=== PATIENT | male | born 1960 | race Caucasian/White ===

== ENCOUNTER 2022-09-23 19:42 | Inpatient (IN) ==
[2022-09-23] MEDS ORDERED: Albuterol/Ipratropium NEB.SOL (2.5/0.5 MG) 3 ML NEB.SOLN INH ONE (19:57)
[2022-09-23 20:16] LABS: Venous Bicarbonate HCO3 30.8 mmol/L (24-28)
[2022-09-23 20:18] LABS: ABS Basophils 0.1 10^3/ul (0-0.2); ABS Eosinophils 0.2 10^3/ul (0-0.6); ABS Lymphocytes 0.7 10^3/ul (1.0-4.8); ABS Neutrophils 8.2 10^3/ul (1.5-7.7); Eosinophil % 2.4 %; Hematocrit 48 % (42-52); Hemoglobin 15.9 g/dL (14.0-18.0); Lymphocyte % 6.5 %; Mean Corpuscular HGB Conc 33 g/dL (31-36); Mean Corpuscular Hemoglobin 30 pg (27-31); Mean Corpuscular Volume 91 fL (80-94); Mean Platelet Volume 7.3 fL (7.4-10.4); Platelet Count 263 10^3/uL (150-450); Red Blood Count 5.32 10^6 /uL (4.18-5.48); Red Cell Distribution Width 14 % (10-15); White Blood Count 10.2 10^3/uL (3.5-10.8)
[2022-09-23 21:06] LABS: Albumin 3.9 g/dL (3.2-5.2); Albumin/Globulin Ratio 1.6 (1-3); C Reactive Protein 44.74 mg/L (<8.01); Calcium 8.9 mg/dL (8.6-10.3); Globulin 2.4 g/dL (2-4); Potassium 4.2 mmol/L (3.5-5.0); Total Bilirubin 0.5 mg/dL (0.2-1.0); Total Protein 6.3 g/dL (6.4-8.9); eGFR CKD-EPI 74.6 (>60)
[2022-09-23] MEDS ORDERED: Azithromycin 500 mg/250 ml NS 500 MG/250 ML BAG IVPB ONE (21:19)
[2022-09-23] MEDS ORDERED: Lactated Ringers 1000 ml BAG 1,000 ML IV ONE (21:19)
[2022-09-23] MEDS ORDERED: cefTRIAXone 1 gm/50 mL D5W 1 GM/50 ML BAG IV ONE (21:19)
[2022-09-23] MEDS: Enoxaparin 40 MG/0.4 ML SYR SUBCUT SCH (22:32)
[2022-09-24 05:16] LABS: ABS Basophils 0.1 10^3/ul (0-0.2); ABS Eosinophils 0.2 10^3/ul (0-0.6); ABS Lymphocytes 0.9 10^3/ul (1.0-4.8); ABS Monocytes 0.8 10^3/ul (0-0.8); ABS Neutrophils 6.5 10^3/ul (1.5-7.7); Eosinophil % 2.1 %; Hematocrit 46 % (42-52); Hemoglobin 15.4 g/dL (14.0-18.0); Lymphocyte % 10.5 %; Mean Corpuscular HGB Conc 33 g/dL (31-36); Mean Corpuscular Hemoglobin 30 pg (27-31); Mean Corpuscular Volume 89 fL (80-94); Mean Platelet Volume 6.9 fL (7.4-10.4); Platelet Count 238 10^3/uL (150-450); Red Blood Count 5.15 10^6 /uL (4.18-5.48); Red Cell Distribution Width 14 % (10-15); White Blood Count 8.5 10^3/uL (3.5-10.8)
[2022-09-24 06:01] LABS: Calcium 8.3 mg/dL (8.6-10.3); Potassium 4.1 mmol/L (3.5-5.0); eGFR CKD-EPI 101.8 (>60)
[2022-09-24] MEDS ORDERED: NS 0.9% w/ 40 Meq KCL 1000 ML 1,000 ML IV SCH (09:00)
[2022-09-24] MEDS: Carbidopa/Levodop 25/100 MG TAB PO SCH ×3 (09:25→22:40)
[2022-09-24] MEDS: Fluticasone NASAL SPRAY 50MCG 16 gm SPRAY BTL INTRANASAL SCH (09:25)
[2022-09-24] MEDS ORDERED: cefTRIAXone 1 gm/50 mL D5W 1 GM/50 ML BAG IV ONE (21:00)
[2022-09-24] MEDS: Enoxaparin 40 MG/0.4 ML SYR SUBCUT SCH (22:42)
[2022-09-25 07:52] LABS: Albumin 3.7 g/dL (3.2-5.2)
[2022-09-25] MEDS: Fluticasone NASAL SPRAY 50MCG 16 gm SPRAY BTL INTRANASAL SCH (09:54)
[2022-09-25] MEDS: Carbidopa/Levodop 25/100 MG TAB PO SCH ×3 (09:54→21:36)
[2022-09-25] MEDS ORDERED: Magnesium Hydroxide LIQ 30 ML UDC PO ONE (12:28)
[2022-09-25] MEDS ORDERED: Magnesium Hydroxide LIQ 30 ML UDC PO PRN (12:28)
[2022-09-25 13:11] LABS: Venous Bicarbonate HCO3 27.1 mmol/L (24-28)
[2022-09-25] MEDS: Lactated Ringers 1000 ml BAG 1,000 ML IV SCH (16:12)
[2022-09-25] MEDS ORDERED: cefTRIAXone 1 gm/50 mL D5W 1 GM/50 ML BAG IV SCH (21:00)
[2022-09-25] MEDS: Enoxaparin 40 MG/0.4 ML SYR SUBCUT SCH (21:36)
[2022-09-26] MEDS: Lactated Ringers 1000 ml BAG 1,000 ML IV SCH (05:33)
[2022-09-26 06:25] LABS: INR 1.26 (0.88-1.18)
[2022-09-26] MEDS: Fluticasone NASAL SPRAY 50MCG 16 gm SPRAY BTL INTRANASAL SCH (08:59)
[2022-09-26] MEDS: Carbidopa/Levodop 25/100 MG TAB PO SCH (08:59)
[2022-09-26 10:48] VITALS: BP 108/71
[2022-09-26] MEDS ORDERED: cefTRIAXone ADVAN VIAL 1 GM in NS 0.9% 50 ML 50 ML IVPB SCH (21:00)
[2022-09-26] MEDS ORDERED: cefTRIAXone 1 gm/50 mL NS BAG 1 GM/50 ML BAG IV SCH (21:00)
[2022-09-28 14:14] LABS: Mycoplasma Pneumoniae PCR Negative; Mycoplasma Pneumoniae Source Nasopharyngeal
== END 2022-09-26 14:20 | disposition home health service (06) | DRG 871 ==
LOC: EDHOLD 19:42 → ED 19:42 → OBSVTOIN 21:42 → SUATTDRO 21:45 → EDHOLD 09-24 11:56 → MED 09-24 12:07
PROVIDERS: ADMIT Internal Medicine; ATTEND Internal Medicine

== ENCOUNTER 2024-04-09 09:11 | Observation (INO) ==
[2024-04-09] MEDS: LACTATED RINGERS IV ONE (09:48)
[2024-04-09 10:06] LABS: ABS Basophils 0.1 10^3/uL (0.0-0.1); ABS Lymphocytes 0.6 10^3/uL (1.0-4.8); ABS Monocytes 0.8 10^3/uL (0.0-1.1); ABS Neutrophils 11.5 10^3/uL (1.5-7.6); ABS Nucleated RBC 0.01 10^3/ul; Eosinophil % 0.1 %; Hemoglobin 16.5 g/dL (13.2-16.3); Lymphocyte % 4.6 %; Mean Corpuscular Hemoglobin 30.5 pg (27-33); Mean Corpuscular Hgb Conc 32.3 g/dL (31-36); Mean Corpuscular Volume 94.4 fL (80-97); Mean Platelet Volume 8.4 fL (7.5-11.2); Platelet Count 360 10^3/uL (150-450); Red Blood Count 5.41 10^6/uL (4.06-5.63); Red Cell Distribution Width 14.3 % (12-17); White Blood Count 12.9 10^3/uL (3.6-10.2)
[2024-04-09 10:17] LABS: Activated Partial Thrombo Time 32.1 seconds (26.0-38.0); INR 1.09 (0.83-1.13)
[2024-04-09 10:38] LABS: ALT 23 U/L (7-52); AST 33 U/L (13-39); Albumin 4.4 g/dL (3.2-5.2); Albumin/Globulin Ratio 1.7 (1-3); Alkaline Phosphatase 85 U/L (35-149); Anion Gap 9 mmol/L (2-16); Blood Urea Nitrogen 33 mg/dL (6-24); CO2 Carbon Dioxide 28 mmol/L (22-32); Calcium 9.8 mg/dL (8.6-10.3); Chloride 110 mmol/L (101-111); Creatinine, Serum 0.87 mg/dL (0.67-1.17); Globulin 2.6 g/dL (2-4); Glucose 219 mg/dL (70-100); Potassium 4.2 mmol/L (3.5-5.0); Sodium 147 mmol/L (135-145); Total Bilirubin 0.4 mg/dL (0.2-1.0); eGFR CKD-EPI 95.8 (>60)
[2024-04-09 11:07] LABS: Urine Appearance Clear; Urine Bilirubin Negative (Negative); Urine Blood Negative (Negative); Urine Color Yellow; Urine Glucose Negative (Negative); Urine Ketones Negative (Negative); Urine Nitrite Negative (Negative); Urine Protein Trace (Negative); Urine Specific Gravity 1.028 (1.002-1.030); Urine Urobilinogen Negative (Negative); Urine pH 6.5 (5.0-8.0)
[2024-04-09] MEDS: Iohexol 300 (CONTRAST) 10 ML SDV IV ONE (11:31)
[2024-04-09] MEDS: Piperacillin/Tazobac 3.375 BAG 3.375 GM/100 ML BAG IV ONE (11:40)
[2024-04-09 14:44] LABS: TSH Ultra Thyroid Stim Horm 1.76 mcIU/mL (0.34-5.60)
[2024-04-09 14:55] LABS: Folate > 20.00 ng/mL (5.90-24.80)
[2024-04-09 14:56] LABS: Vitamin B12 330 pg/mL (180-914)
[2024-04-09 16:33] LABS: ABS Basophils 0.1 10^3/uL (0.0-0.1); ABS Eosinophils 0.1 10^3/uL (0.0-0.5); ABS Monocytes 0.7 10^3/uL (0.0-1.1); ABS Nucleated RBC 0.01 10^3/ul; Eosinophil % 0.8 %; Hematocrit 41.3 % (38-53); Hemoglobin 13.8 g/dL (13.2-16.3); Lymphocyte % 9.1 %; Mean Corpuscular Hemoglobin 31.3 pg (27-33); Mean Corpuscular Hgb Conc 33.4 g/dL (31-36); Mean Corpuscular Volume 93.8 fL (80-97); Platelet Count 277 10^3/uL (150-450); Red Blood Count 4.41 10^6/uL (4.06-5.63); Red Cell Distribution Width 13.9 % (12-17); White Blood Count 10.9 10^3/uL (3.6-10.2)
[2024-04-09] MEDS ORDERED: HYDROcodone/ACETAMIN 5/325 mg TAB PO PRN (17:14)
[2024-04-09 17:22] LABS: Albumin 3.3 g/dL (3.2-5.2); Albumin/Globulin Ratio 1.7 (1-3); Calcium 8.7 mg/dL (8.6-10.3); Creatinine, Serum 0.7 mg/dL (0.67-1.17); Globulin 1.9 g/dL (2-4); Potassium 4.1 mmol/L (3.5-5.0); Total Bilirubin 0.4 mg/dL (0.2-1.0); Total Protein 5.2 g/dL (6.4-8.9); eGFR CKD-EPI 102.3 (>60)
[2024-04-09] MEDS: D5NS 0.9% 1000 ml BAG 1,000 ML IV SCH (20:11)
[2024-04-09] MEDS: Enoxaparin 40 MG/0.4 ML SYR SUBCUT SCH (20:29)
[2024-04-09] MEDS: Carbidopa/Levodop 25/100 MG TAB PO SCH (21:27)
[2024-04-10 08:52] LABS: ABS Basophils 0.1 10^3/uL (0.0-0.1); ABS Eosinophils 0.1 10^3/uL (0.0-0.5); ABS Monocytes 0.5 10^3/uL (0.0-1.1); ABS Neutrophils 6.4 10^3/uL (1.5-7.6); ABS Nucleated RBC 0.02 10^3/ul; Eosinophil % 1.5 %; Hematocrit 41.1 % (38-53); Hemoglobin 13.7 g/dL (13.2-16.3); Mean Corpuscular Hemoglobin 31.3 pg (27-33); Mean Corpuscular Hgb Conc 33.3 g/dL (31-36); Nucleated Red Blood Cells % 0.3 %/100WBC (0.0-0.8); Platelet Count 265 10^3/uL (150-450); Red Blood Count 4.37 10^6/uL (4.06-5.63); Red Cell Distribution Width 13.7 % (12-17); White Blood Count 8.1 10^3/uL (3.6-10.2)
[2024-04-10 09:40] LABS: Albumin 3.3 g/dL (3.2-5.2); Albumin/Globulin Ratio 1.6 (1-3); Calcium 8.6 mg/dL (8.6-10.3); Creatinine, Serum 0.59 mg/dL (0.67-1.17); Globulin 2.1 g/dL (2-4); Potassium 3.8 mmol/L (3.5-5.0); Total Bilirubin 0.4 mg/dL (0.2-1.0); Total Protein 5.4 g/dL (6.4-8.9); eGFR CKD-EPI 107.7 (>60)
[2024-04-10 10:07] VITALS: BP 139/86
[2024-04-10] MEDS: D5W 1000 ml BAG 1,000 ML IV SCH ×2 (11:27→11:29)
[2024-04-10] MEDS: D5W 1000 ml BAG 500 ML IV ONE (12:51)
[2024-04-10 13:09] LABS: Urine Osmo 716 mOsm/kg (150-1150)
[2024-04-10 15:53] LABS: Calcium 8.6 mg/dL (8.6-10.3); Creatinine, Serum 0.58 mg/dL (0.67-1.17); Potassium 3.8 mmol/L (3.5-5.0); eGFR CKD-EPI 108.2 (>60)
== END 2024-04-10 16:00 | disposition short-term general hospital (02) ==
LOC: ED 09:11 → EDHOLD 09:11 → MED 15:30
PROVIDERS: ADMIT Hospitalist; ATTEND Hospitalist